=== PATIENT | female | born 1985 | race Caucasian/White ===

== ENCOUNTER 2016-12-29 12:24 | Emergency (ER) | payer OTHER ==
[2016-12-29 12:48] VITALS: BP 133/83
== END 2016-12-29 17:40 | disposition left against medical advice (07) ==
LOC: ED 12:24
DX: Z53.21 Procedure and treatment not carried out due to patient leaving prior to being seen by health care provider (principal)

== ENCOUNTER 2018-08-06 17:18 | Emergency (ER) | payer OTHER ==
[~2018-08-06] VITALS: Ht 165.1 cm; Wt 84.8 kg
[2018-08-06 17:22] VITALS: Ht 165.1 cm; Wt 84.8 kg
[2018-08-06 19:09] VITALS: BP 120/77
== END 2018-08-06 19:09 | disposition home or self-care (01) ==
LOC: ED 17:18
DX: J06.9 Acute upper respiratory infection, unspecified (principal); J45.909 Unspecified asthma, uncomplicated
CPT/HCPCS: J7512